=== PATIENT | female | born 1990 | race Hispanic/Latino ===

== ENCOUNTER 2025-06-14 18:02 | Emergency (ER) | payer SELFPAY ==
[2025-06-14 18:08] VITALS: BP 138/84
[2025-06-14] MEDS: MOTRIN 600 MG PO (19:12)
[2025-06-14] MEDS: PERCOCET 5/325 1 TABLET PO (19:12)
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
== END 2025-06-14 19:36 | disposition home or self-care (01) ==
LOC: EMR 18:02
PROVIDERS: EMERGENCY PHYSICIAN Emergency Medicine
DX: S52.501A Unspecified fracture of the lower end of right radius, initial encounter for closed fracture (principal); S52.611A Displaced fracture of right ulna styloid process, initial encounter for closed fracture; S69.92XA Unspecified injury of left wrist, hand and finger(s), initial encounter; V43.52XA Car driver injured in collision with other type car in traffic accident, initial encounter; W22.11XA Striking against or struck by driver side automobile airbag, initial encounter; W22.12XA Striking against or struck by front passenger side automobile airbag, initial encounter; Y92.410 Unspecified street and highway as the place of occurrence of the external cause
CPT/HCPCS: 99283; 29125; 73110

== ENCOUNTER 2025-08-04 21:37 | Observation (INO) | payer OTHER, SELFPAY ==
[2025-08-04 16:52] VITALS: BP 132/77
--- NOTE | 2025-08-04 19:23 | ED.GENMED ---
History of Present Illness
<Gilda Jones PA-C - Last Filed: 08/05/25 00:38>
General
Chief Complaint: Skin Problem
Source: patient
Exam Limitations: none
Time Seen by Provider: 08/04/25 18:49
Nursing documentation reviewed up to this point in time: agreed with
History of Present Illness
History of Present Illness:
Patient is a 35-year-old female who presents to the emergency department for evaluation of an abscess of the right axilla. She states that she initially noticed a 'pimple' in her right axilla few days ago which has rapidly progressed. She was seen
in urgent care yesterday and started on a course of Bactrim and instructed to return today for drainage. However, she was seen by her primary care today and referred to the emergency department for management.
Patient states redness has rapidly expanded over the past 24 hours. She describes significant pain in her right axilla and right arm. She denies any fever, chills, or vomiting.
Just prior to arriving to the ED she reports spontaneous from abscess. She has no history of frequent abscesses.
Patient is not diabetic. No drug allergies.
Past History
<Gilda Jones PA-C - Last Filed: 08/05/25 00:38>
Past History
ED Past Medical History: Psychiatric
ED Past Surgical History: Appendectomy and
Patient has exhibited threatening behavior?: No
Social History
Tobacco: Non-smoker
Alcohol: None
Drug: None
Personal:
Living: with family
Employment: Employed (Furniture store)
Review of Systems
<GENIE Silva Last Filed: 08/05/25 00:38>
Review of Systems
Allergies reviewed?: Yes
All Other Systems: ROS reviewed and negative except as documented in HPI and ROS
Phy Exam
<GENIE Silva Last Filed: 08/05/25 00:38>
Physical Exam
Physical Exam:
Vitals: Patient's vital signs are stable. Afebrile
General: Patient is uncomfortable appearing due to
Skin: Tender, fluctuant mass in right axilla with significant surrounding erythema extending distally toward elbow; spontaneous drainage of blood-tinged purulent fluid from abscess.
Head: Normocephalic, atraumatic
Eyes: Sclera nonicteric.
Throat: Protecting airway
Neck: Normal ROM, no cervical spine tenderness, no meningismus
Cardiac: Regular rate and rhythm, no murmurs.
Pulm: Normal respiratory effort, no wheezes, rales, rhonchi heard on exam
.
Abdomen: No abdominal tenderness.
Extremities: Abscess of right axilla as above. Distal pulses intact
Neuro: AAOx3. CN II-XII intact. No focal neurologic deficits.
Psychiatric: Normal affect.
Course
<Gilda Jones PA-C - Last Filed: 08/05/25 00:38>
Orders/Labs/Results
Orders:
Orders
08/04/25 19:17
Morphine Sulfate 4 mg IV NOW STA
08/04/25 19:21
Clindamycin 600 mg/50 ml [Cleocin] 600 mg in 50 ml IV NOW
Test Result ONCE
08/04/25 19:22
Ketorolac [Toradol] 15 mg IV NOW STA
08/04/25 19:39
Complete Blood Count/With Diff Urgent
Comprehensive Metabolic Panel Urgent
HCG, Serum Qualitative Screen Urgent
Lactate Level [Lactic Acid] Q4H
Blood Culture Urgent
KAILEE Source: Blood/Venous
Specimen Description:
08/04/25 19:41
Wound Culture [Wound/Abscess/Other Culture] Urgent
KAILEE Source: Abscess
Specimen Description:
Date Specimen was Collected: 08/04/25
Time Specimen was Collected: 19:40
08/04/25 19:52
Clindamycin 600 mg/50 ml [Cleocin] 600 mg in 50 ml IV NOW
08/04/25 20:59
Admit/Transfer Patient As Directed
Co-Sign Provider:
Level of Care: Observation services
Assign to:: Medical/Surgical
Physician / Group: Otto Navarro
Diagnosis: right axilla abscess with surrounding cellulitis
PRN Pain Medication Management As Directed
May give lesser potent ordered pain med per pt: Yes
preference::
Protocol:: Medication orders for pain may be administered in a
manner that supports deferring to patient preference
when the pt is:
- Requesting an ordered lesser potent pain medication.
Least to most potent pain medications are defined
as: acetaminophen < NSAID < tramadol < opioids
(morphine, oxycodone, hydromorphone).
- Requesting a lesser dose of the same medication IF
ORDERED.
- Requesting a less intrusive route of administration
if both routes are prescribed by the provider (PO <
IV).
08/04/25 21:00
Code Status As Directed
Resuscitation Status: Full Code
08/04/25 22:09
Acetaminophen [Tylenol] 650 mg PO Q4HPRN PRN
Lorazepam [Ativan] 0.5 mg PO DAILYPRN PRN anxiety
08/04/25 22:09
Activity As Directed
Activity Level: Ambulate
Vital Signs As Directed
Frequency: Per unit guidelines
Weight As Directed
Frequency: Once
Comment: on admission
DX Deep Vein Thrombosis Video Routine
08/05/25 02:00
Ketorolac [Toradol] 10 mg IV Q6HPRN PRN
08/05/25 04:00
Clindamycin 600 mg/50 ml [Cleocin] 600 mg in 50 ml IV Q8H
08/05/25 Breakfast
Regular
At Your Request: Full Participation
08/05/25 08:00
Bupropion(24Hr)Extended Releas [WELLBUTRIN XL (24 hour extended release)] 300 mg PO DAILY
Fluoxetine HCl [Prozac] 40 mg PO DAILY
08/05/25 18:00
Enoxaparin Sodium [Lovenox] 40 mg SC QPM
Abnormal Lab Results
08/04/25
19:39
MCHC 32.7 L g/dL
(33.0-37.0)
Abs Immat Gran (auto) 0.1 H 10^3/uL
(0-0.05)
Absolute Monos (auto) 0.7 H 10^3/uL
(0.1-0.6)
Immature Gran % 0.8 H %
(0-0.5)
08/04/25 19:39
08/04/25 19:39
Vital Signs
Initial and Last Documented VS:
Initial Vital Signs
Temp Pulse Resp BP Pulse Ox
97.6 F 92 18 132/77 97
08/04/25 16:52 08/04/25 16:52 08/04/25 16:52 08/04/25 16:52 08/04/25 16:52
Last Documented Vital Signs
Temp Pulse Resp BP Pulse Ox
97.7 F 71 18 114/74 99
08/04/25 22:10 08/04/25 22:10 08/04/25 22:10 08/04/25 22:10 08/04/25 22:10
Chikislt;Niranjan Foley, DO - Last Filed: 08/04/25 19:42>
Orders/Labs/Results
Orders:
Orders
08/04/25 19:17
Morphine Sulfate 4 mg IV NOW STA
08/04/25 19:21
Clindamycin 600 mg/50 ml [Cleocin] 600 mg in 50 ml IV NOW
Test Result ONCE
08/04/25 19:22
Ketorolac [Toradol] 15 mg IV NOW STA
08/04/25 19:39
Complete Blood Count/With Diff Urgent
Comprehensive Metabolic Panel Urgent
HCG, Serum Qualitative Screen Urgent
Lactate Level [Lactic Acid] Q4H
Blood Culture Urgent
KAILEE Source: Blood/Venous
Specimen Description:
08/04/25 19:41
Wound Culture [Wound/Abscess/Other Culture] Urgent
KAILEE Source: Abscess
Specimen Description:
Date Specimen was Collected: 08/04/25
Time Specimen was Collected: 19:40
08/04/25 19:52
Clindamycin 600 mg/50 ml [Cleocin] 600 mg in 50 ml IV NOW
08/04/25 20:59
Admit/Transfer Patient As Directed
Co-Sign Provider:
Level of Care: Observation services
Assign to:: Medical/Surgical
Physician / Group: Otto Navarro
Diagnosis: right axilla abscess with surrounding cellulitis
PRN Pain Medication Management As Directed
May give lesser potent ordered pain med per pt: Yes
preference::
Protocol:: Medication orders for pain may be administered in a
manner that supports deferring to patient preference
when the pt is:
- Requesting an ordered lesser potent pain medication.
Least to most potent pain medications are defined
as: acetaminophen < NSAID < tramadol < opioids
(morphine, oxycodone, hydromorphone).
- Requesting a lesser dose of the same medication IF
ORDERED.
- Requesting a less intrusive route of administration
if both routes are prescribed by the provider (PO <
IV).
08/04/25 21:00
Code Status As Directed
Resuscitation Status: Full Code
08/04/25 22:09
Acetaminophen [Tylenol] 650 mg PO Q4HPRN PRN
Lorazepam [Ativan] 0.5 mg PO DAILYPRN PRN anxiety
08/04/25 22:09
Activity As Directed
Activity Level: Ambulate
Vital Signs As Directed
Frequency: Per unit guidelines
Weight As Directed
Frequency: Once
Comment: on admission
DX Deep Vein Thrombosis Video Routine
08/05/25 02:00
Ketorolac [Toradol] 10 mg IV Q6HPRN PRN
08/05/25 04:00
Clindamycin 600 mg/50 ml [Cleocin] 600 mg in 50 ml IV Q8H
08/05/25 Breakfast
Regular
At Your Request: Full Participation
08/05/25 08:00
Bupropion(24Hr)Extended Releas [WELLBUTRIN XL (24 hour extended release)] 300 mg PO DAILY
Fluoxetine HCl [Prozac] 40 mg PO DAILY
08/05/25 18:00
Enoxaparin Sodium [Lovenox] 40 mg SC QPM
Abnormal Lab Results
08/04/25
19:39
MCHC 32.7 L g/dL
(33.0-37.0)
Abs Immat Gran (auto) 0.1 H 10^3/uL
(0-0.05)
Absolute Monos (auto) 0.7 H 10^3/uL
(0.1-0.6)
Immature Gran % 0.8 H %
(0-0.5)
08/04/25 19:39
08/04/25 19:39
Vital Signs
Initial and Last Documented VS:
Initial Vital Signs
Temp Pulse Resp BP Pulse Ox
97.6 F 92 18 132/77 97
08/04/25 16:52 08/04/25 16:52 08/04/25 16:52 08/04/25 16:52 08/04/25 16:52
Last Documented Vital Signs
Temp Pulse Resp BP Pulse Ox
97.7 F 71 18 114/74 99
08/04/25 22:10 08/04/25 22:10 08/04/25 22:10 08/04/25 22:10 08/04/25 22:10
Procedures
<Gilda Jones PA-C - Last Filed: 08/05/25 00:38>
Incision/Drainage/Joint Aspiration
Right axilla:
Anethesia: 1% Lidocaine with Epi
Preparation: cleaned with alcohol wipe
Type of procedure: incise and drain
Nature of site: abscess
Description of abscess: greater than 3cm
Loculations broken up: Yes
How much fluid was obtained?: large amount
Fluid description: purulent, blood tinged and bloody
Treatment: left open for drainage
<Gilda Jones PA-C - Last Filed: 08/05/25 00:38>
MDM/Problems Addressed
Differential Diagnosis Includes:
Not limited to: Cyst, abscess, cellulitis, etc.
MDM/Problems Addressed:
35-year-old female with abscess of right axilla with surrounding cellulitis. Initially noticed three days ago and was started on Bactrim yesterday. Rapid expansion of surrounding erythema since starting Bactrim.
No fever, chills, nausea or vomiting. No history of frequent absences.
Vitals stable, afebrile. On exam, patient appears uncomfortable due to pain. There is a tender, fluctuant mass in right axilla, which is draining blood -tinged, purulent fluid. There is significant surrounding cellulitic changes of skin extending
toward elbow.
Patient requires I&D of abscess despite some spontaneous drainage. Verbal consent obtained by patient. Area cleansed thoroughly with alcohol swab and betaine. Local anesthesia with 1% lido w/ epi. Incision using 11 blade with significant
bloody/purulent drainage expressed. Cultures obtained.
Given significant surrounding cellulitis despite oral antibiotics, will admit patient for IV antibiotics. Will check basic labs. IV clindamycin given in ED. Will treat pain.
Patient accepted to hospitalist service in stable condition.
Chronic conditions affecting care:
N/A
Acute Exacerbation and/or Progression of Chronic Illness:
N/A
<Gilda Jones PA-C - Last Filed: 08/05/25 00:38>
*Pulse Oximetry
SaO2: 97
Patient hypoxic: no
*EKG
Interpreted by ED Provider?: NA
*Senior Software Architect Interpretation
Rate: Senior Software Architect- N/A
*Critical Care Note
Total Time (30-74mins, 75-104mins- exclusive of procedures): Not Applicable
<Gilda Jones PA-C - Last Filed: 08/05/25 00:38>
Patient Management
Discussion with other providers: Hospitalist
ED Attending Note
<Gilda Jones PA-C - Last Filed: 08/05/25 00:38>
-
Portions of this chart may have been created with voice recognition software.� Occasional wrong word or��sound alike� substitutions may have occurred due to the inherent limitations of voice recognition software.
<Niranjan Foley DO - Last Filed: 08/04/25 19:42>
ED Attending Note
Patient seen and examined by attending physician: Yes
I performed the substantive portion of visit, reviewed & personally made and approve the management plan that is documented in note by myself or HARDIK.: Yes
ED Attending Note:
I have seen and evaluated the patient with a [id number] encounter. I have spoken to the advance practicer provider and involved in the medical history, the physical exam, medical decision making.
Evaluation and management service: agree unless noted differently below.
Results interpretation: agree unless noted differently below.
Focused HPI: 35-year-old female presenting with large abscess to her right axilla. Patient has already been on Bactrim.
Physical exam: Large abscess to right axilla with surrounding cellulitic changes
Medical Decision Making: Patient requiring I&D. Given the significant amount of cellulitic changes despite being on antibiotics, will admit for IV antibiotics
Discharge Plan
Departure
Patient Disposition: Admit
Date of Disposition: 08/04/25
Time of Disposition: 19:33
Presentation/result/management discussed w/ accepting MD/DO: Hospitalist
Discharge Problem:
Abscess of right axilla, Cellulitis
Interventions
Interventions:
*Risk Screen - Suicide Last Done: 08/04/25 19:31
*General Assessment Last Done: 08/04/25 21:42
*Neglect/Abuse Screening Last Done: 08/04/25 19:31
*ED- Fall Risk Assessment Last Done: 08/04/25 21:44
*ED COVID-19 Vaccine History Last Done: 08/04/25 21:44
*ED Influenza Vaccine History Last Done: 08/04/25 21:44
*Nursing Disposition Last Done: 08/04/25 21:42
ED-Skin Assessment Last Done: 08/04/25 19:31
Discharge Date and Time
Discharge Date/Time: 08/04/25 22:02
[2025-08-04 19:31] VITALS: BMI 30.8
[2025-08-04 19:52] LABS: Hematocrit 38.8 % (37.0-47.0); Hemoglobin 12.7 g/dL (12.0-16.0); Mean Corp Hgb Conc. 32.7 g/dL (33.0-37.0); Mean Corpuscular Volume 84.5 fL (81.0-99.0); Nucleated Red Blood Cells % 0 %; Platelet Count 255 10^3/uL (130-400); Red Cell Dist. Width 12.7 % (11.5-14.5)
[2025-08-04] MEDS: MORPHINE SULFATE 4 MG IV (19:53)
[2025-08-04] MEDS: TORADOL 15 MG IV (19:54)
[2025-08-04 20:07] LABS: HCG, Serum Qualitative Screen Negative
[2025-08-04] MEDS: CLEOCIN 50 IV (20:09)
[2025-08-04 20:12] LABS: ALT (SGPT) 19 U/L (0-35); AST (SGOT) 19 U/L (14-36); Albumin 4.4 g/dl (3.5-5.0); Alkaline Phosphatase 78 U/L (38-126); Blood Urea Nitrogen 15 mg/dl (7-17); Calcium 9.7 mg/dl (8.4-10.2); Carbon Dioxide 28 mmol/L (22-30); Chloride 103 mmol/L (98-107); Estimated Creatinine Clearance 117 ml/min; Glucose 95 mg/dl (70-99); Potassium 3.7 mmol/L (3.5-5.1); Sodium 136 mmol/L (135-145); Total Protein 7.6 g/dl (6.3-8.2); eGFR > 60.00
--- NOTE | 2025-08-04 20:29 | HPS.HSE ---
Family Physician
-
Family Physician: Jie Mclaughlin
Chief Complaint
-
abscess in right axilla
History of Present Illness
Patient is a 35-year-old female with past medical history significant for depression/anxiety who presented to [facility] ED for evaluation of abscess in right axilla. Patient reports she noticed a pimple like area on Saturday afternoon that progressed in
size. She was seen in Urgent Care yesterday where she was prescribed Bactrim. She reports taking 2 doses and seeing primary care provider today who recommended she be seen in the ED. On way from primary care to ED patient reports that the abscess
spontaneously started draining on its own. She denies any fever, chills, cough, shortness of breath, chest pain, palpitations, nausea, vomiting or diarrhea.
Medical History
Past Medical History
Past Medical History: Reports Other
Additional Past Medical History:
depression/anxiety
Past Surgical History: Reports Other
Additional Past Surgical History:
Appendectomy
tonsillectomy and adenoidectomy
section
right wrist repair
right middle finger tendon repair
Social History
Tobacco: Non-smoker
Alcohol: None
Drug: None
Living: With Family
Employment: Employed
Family History
Family History: Not pertinent
Allergies / Home Medications
Allergies reflects when Allergies were last updated in [facility].
Home Medications with original date entered in [facility]
Allergy/Medication List:
Allergies
Allergy/AdvReac Type Severity Reaction Status Date / Time
No Known Allergies Allergy Verified 06/14/25 18:08
Home Medications
bupropion HCl 300 mg 24 hr tablet, extended release (Wellbutrin XL) 300 mg PO DAILY 08/04/25
fluoxetine 40 mg capsule 40 mg PO DAILY 08/04/25
ibuprofen 125 mg-acetaminophen 250 mg tablet (Advil Dual Action) 3 tab PO DAILYPRN PRN mild pain 08/04/25
lorazepam 0.5 mg tablet 0.5 mg PO DAILYPRN PRN anxiety 08/04/25
Review of Systems
-
History Source: Patient
Constitutional: Denies Fever or Chills
EENT: Denies Sore Throat
Respiratory: Denies Cough, Hemoptysis or Trouble Breathing
Cardiac: Denies Chest Pain, Diaphoresis, Palpitations or Syncope
Abdomen/GI: Denies Abdominal Pain, Nausea, Vomiting or Diarrhea
: Denies Dysuria, Frequency or Urgency
Musculoskeletal: Denies Joint Pain
Skin: Reports Other (pain to right axilla with abscess present )
Neurological: Denies Dizzy, Headache, Weakness or Numbness
Physical Exam
Vital Signs
Vital Signs
Temp Pulse Resp BP Pulse Ox
97.6 F 92 18 132/77 97
08/04/25 16:52 08/04/25 16:52 08/04/25 16:52 08/04/25 16:52 08/04/25 19:33
Physical Exam
General: Well Developed, Well Nourished, No Apparent Distress, Comfortable and Conversant
HEENT: NormoCephalic, Moist mucous membranes, PERRLA, Nose Appears Normal and Ears Appear Normal
Respiratory: Clear and Non Labored Respirations
Cardiac: S1/S2 and Regular Rhythm; No Murmur, Rub, Gallop or Peripheral Edema
GI: Soft, Non Tender, Non Distended and Normal Bowel Sounds
Musculoskeletal: No Clubbing, No Cyanosis and No Edema
Skin: Other (right axilla abscess with cellulitis expanding towards elbow )
Neuro: Awake and AO x 3
Psych: Calm and Intact Judgment/Insight
Laboratory Results
-
08/04/25 19:39
08/04/25 19:39
Laboratory Results
Lactic Acid Cancelled 08/04/25 23:30
Total Bilirubin 0.3 mg/dl (0.2-1.3) 08/04/25 19:39
AST 19 U/L (14-36) 08/04/25 19:39
ALT 19 U/L (0-35) 08/04/25 19:39
Alkaline Phosphatase 78 U/L (38-126) 08/04/25 19:39
Data Reviewed
-
Lab Data: Labs Reviewed by me
Impression/Plan
-
IMPRESSION/PLAN:
#right axilla abscess with surrounding cellulitis
area started as pimple Saturday that progressed, seen in Urgent Care yesterday and prescribed Bactrim, 2 doses taken
spontaneously started draining on way to ED for evaluation
wound culture: pending
- Admit to med/surg
- IV Clindamycin
- pain regimen
#depression/anxiety
- continue bupropion, fluoxetine and lorazepam
Code status: full code
DVT prophylaxis: Lovenox sq
--- NOTE | 2025-08-04 20:29 | W.PN.UPDATE ---
Update Note
Progress Note Update
Patient seen in conjunction with [employer]. I agree with the findings on Scope. And concur with assessment plan unless stated otherwise.
Briefly, patient is a 35-year-old female with past medical history significant for depression/anxiety who presents to the emergency department for evaluation of abscess of the right axilla. She developed symptoms a few days ago with rapid
progression. She was seen in urgent care yesterday and started on Bactrim and told to return for drainage. She was then sent to emergency department today by PMD due to progression of symptoms.
He reports significant pain at right axilla. He has not been any fevers or chills. She has had no nausea or vomiting. She does not have diabetes.
I&D performed in the emergency department with large amount of blood and purulent drainage.
In the ED she was afebrile with a temp of 97.6, blood pressure was 132/77 with a pulse rate of 92 and she was satting 98% on room air. Her CBC was unremarkable. Electrolytes BUN/creatinine were all in normal range.
Patient is not at elevated risk for MRSA. She does not have diabetes. She has no recent antibiotic use. This is typical for purulent cellulitis from a folliculitis. She is well-appearing and hemodynamically stable.
- Will admit to MedSurg observation
- Will continue with IV antibiotics for now, clindamycin started in the ED will continue for now although suspect she will do well on cefazolin
- MRSA swab
- Pain control
DVT prophylaxis�SCDs
CODE STATUS�full code
[2025-08-04 22:10] VITALS: BP 114/74; BMI 30.6
[2025-08-05] MEDS: CLEOCIN 50 IV ×3 (03:52→20:40)
--- NOTE | 2025-08-05 05:54 | PTCARENOTE ---
Patient received from ED via stretcher. Patient AAOx3, drowsy from pain medication. POC reviewed with patient including antibiotic schedule. Pain medication given as ordered. Will continue to monitor.
[2025-08-05 07:12] VITALS: BP 130/75
--- NOTE | 2025-08-05 07:34 | W.PN.HOSP.TC ---
Today's Communication/Plan
-
Follow-up on culture results
Nonvascular upper extremity ultrasound
Pain control
Assessment / Plan
Assessment / Plan
#Right axilla abscess with surrounding cellulitis
- S/p I&D in the ED with large amount of blood and purulent drainage on 08/04/2025
- MRSA screen, blood culture, wound culture pending
- Continue with IV clindamycin for now; we can narrow it down after culture results
- pain control with Tylenol and Toradol
- Since diarrhea is still fluctuant after the I&D we will get an ultrasound for better evaluation
#Depression/anxiety
- continue bupropion, fluoxetine and lorazepam
DVT ppx: lovenox
code: Full
Anticipated Discharge: Within 24 hours
Subjective/Interval History
-
Date of Service: August 05, 2025
AFVSS. Continues to have mild discomfort in the right axilla
Objective Data
-
Labs:
Laboratory Results
08/04/25
19:39
WBC 7.9
Hgb 12.7
Hct 38.8
Plt Count 255
Sodium 136
Potassium 3.7
Chloride 103
Carbon Dioxide 28
BUN 15
Creatinine 0.7
Glucose 95
Calcium 9.7
Total Bilirubin 0.3
AST 19
ALT 19
Alkaline Phosphatase 78
Vital Signs:
Vital Signs
Temp Pulse Resp BP Pulse Ox
97.5 F 77 17 130/75 97
08/05/25 07:12 08/05/25 07:12 08/05/25 07:12 08/05/25 07:12 08/05/25 07:12
Review of Systems
-
History Source: Patient
Skin: Reports Other (Right axilla abscess, pain, redness)
Physical Exam
-
General: Well Developed and No Apparent Distress
Respiratory: Clear to Auscultation and Non Labored Respirations
Cardiac: Regular Rhythm and S1/S2
GI: Soft and Nontender
Skin: Other (Right axilla: Tender, fluctuant mass in the right axilla with significant surrounding erythema extending distally towards the elbow, spontaneous blood-tinged purulent drainage)
Neuro: Awake, Alert and Oriented
Psych: Calm
Data Reviewed
-
Labs: Labs Reviewed by me, Discussed with Physician and Discussed with Patient
[2025-08-05] MEDS: PROZAC 40 MG PO (09:03)
[2025-08-05] MEDS: WELLBUTRIN XL (24 hour extended release) 300 MG PO (09:04)
--- NOTE | 2025-08-05 12:56 | CM ---
Patient seen at bedside
IA completed
Lives with son in 2 story home, [address], fllight stairs to bed/bath
PLOF: Independent, works, drives
Denies DME
Denies insecurities
PCP: Jie Mclaughlin
Pharmacy: [facility]
PLAN: Home, no needs anticipated, CM to continue to follow
[2025-08-05 15:08] VITALS: BP 125/75
[2025-08-05] MEDS: LOVENOX 40 MG SC (17:10)
[2025-08-05] MEDS: TYLENOL 650 MG PO (17:10)
[2025-08-05 22:50] VITALS: BP 127/90
[2025-08-06] MEDS: CLEOCIN 50 IV ×3 (04:58→20:31)
[2025-08-06] MEDS: TYLENOL 650 MG PO (05:47)
--- NOTE | 2025-08-06 07:33 | W.PN.HOSP.TC ---
Today's Communication/Plan
-
Continue IV clindamycin
General Surgery consult for possible repeat I&D
Follow up on cultures
Anticipate discharge tomorrow
Assessment / Plan
Assessment / Plan
#Right axilla abscess with purulent cellulitis
- S/p I&D in the ED with large amount of blood and purulent drainage on 08/04/2025
- MRSA screen, blood culture, wound culture pending
- Continue with IV clindamycin for now; we can narrow it down after culture results
- pain control with Tylenol and Toradol
- Since there is still fluctuant after the initial I&D and ultrasound showed complex fluid collection; consult surgery for consideration of repeat I&D
#Depression/anxiety
- continue bupropion, fluoxetine and lorazepam
Diet regular
DVT ppx: lovenox
code: Full
Anticipated Discharge: Within 24 hours
Subjective/Interval History
-
Date of Service: August 06, 2025
AFVSS. Continues to have mild discomfort in the right axilla
Objective Data
-
Labs:
Laboratory Results
08/06/25
07:15
WBC Pending
Hgb Pending
Hct Pending
Plt Count Pending
Sodium Pending
Potassium Pending
Chloride Pending
Carbon Dioxide Pending
BUN Pending
Creatinine Pending
Glucose Pending
Calcium Pending
Vital Signs:
Vital Signs
Temp Pulse Resp BP Pulse Ox
98.5 F 88 16 127/90 98
08/05/25 22:50 08/05/25 22:50 08/05/25 22:50 08/05/25 22:50 08/05/25 22:50
I&O
08/05/25 08/06/25 08/07/25
06:59 06:59 06:59
Intake Total 1420 / 1420
Balance 1420 / 1420
Review of Systems
-
History Source: Patient
Skin: Reports Other (Right axilla abscess, pain, redness)
Physical Exam
-
General: Well Developed and No Apparent Distress
Respiratory: Clear to Auscultation and Non Labored Respirations
Cardiac: Regular Rhythm and S1/S2
GI: Soft and Nontender
Skin: Other (Right axilla: Tender, fluctuant mass in the right axilla with significant surrounding erythema extending distally towards the elbow, spontaneous blood-tinged purulent drainage)
Neuro: Awake, Alert and Oriented
Psych: Calm
Data Reviewed
-
Ultrasound: Report Reviewed by me, Discussed with Physician and Discussed with Patient
Labs: Labs Reviewed by me, Discussed with Physician and Discussed with Patient
[2025-08-06] MEDS: WELLBUTRIN XL (24 hour extended release) 300 MG PO (07:44)
[2025-08-06] MEDS: PROZAC 40 MG PO (07:44)
[2025-08-06 07:46] VITALS: BP 130/85
[2025-08-06 08:16] LABS: Hematocrit 38.8 % (37.0-47.0); Hemoglobin 12.3 g/dL (12.0-16.0); Mean Corp Hgb Conc. 31.7 g/dL (33.0-37.0); Mean Corpuscular Volume 88.0 fL (81.0-99.0); Platelet Count 249 10^3/uL (130-400); Red Cell Dist. Width 12.8 % (11.5-14.5)
[2025-08-06 08:18] LABS: Blood Urea Nitrogen 17 mg/dl (7-17); Calcium 9.2 mg/dl (8.4-10.2); Carbon Dioxide 26 mmol/L (22-30); Chloride 106 mmol/L (98-107); Estimated Creatinine Clearance > 125 ml/min; Glucose 101 mg/dl (70-99); Potassium 4.8 mmol/L (3.5-5.1); Sodium 136 mmol/L (135-145); eGFR > 60.00
--- NOTE | 2025-08-06 09:15 | CON.GS ---
Addendum entered and electronically signed by Prasanna Swain MD 08/06/25 19:29:
Patient seen and examined independently of nurse practitioner. Agree with documented history and physical (with my current examination evaluation.
Reviewed with patient examination findings in which there is persistent induration in the right axilla with some surrounding erythema although that is improving. It is about 2 to 3 cm in diameter. We discussed the possibility of undrained abscess
or infection and indications for consideration of I&D at bedside. Patient advises that she is comfortable proceeding with bedside incision and drainage.
See procedure note for details.
Original Note:
Consultation
-
Date/Time Consultation Performed: 08/06/25929
Medical History
-
Chief Complaint: erythema to right arm
History of Present Illness:
Ms Pena is a 35 yo female with a h/o appi, and recent orthopedic right wrist surgery with hardware placed s/p [facility] on 06/14/2025 ([facility]) who presents with cellulitis and abscess to the right axillary region. She notes that initially she had
what started out as a pimple like area about 5 days ago which increased in size prompting her to present to urgent care 2 days later. She was started on Bactrim DS PO but after 2 days of antibiotics, she noted no improvement and presented through
the ED for evaluation. I&D was preformed in the ED and she was admitted for IV antibiotics. There is surrounding erythema in the axilla and down towards the elbow. A tender palpable area of fluctuance is present in the axilla about 2-3 cm in width.
Minimal old SSF noted on gauze pad. She notes the area has decreased in size since I&D was preformed. She denies fevers or chills.
Past Medical History
Past Medical History: Psychiatric (MANI, MDD)
Past Surgical History: Appendectomy, , Orthopedic (right wrist surgery with hardware 06/2025, right 3rd finger tendon repair) and Tonsilectomy
Social History
Tobacco: Former Smoker
Living: With Family
Employment: Employed
Family History
Family History: Reviewed & Not Pertinent
Allergies / Home Medications
Allergy/AdvReac Type Severity Reaction Status Date / Time
No Known Allergies Allergy Verified 06/14/25 18:08
�Medication �Instructions �Recorded �Confirmed �Type
bupropion HCl 300 mg 24 hr tablet, 300 mg PO DAILY depression/anxiety 08/04/25 08/04/25 History
extended release (Wellbutrin XL)
fluoxetine 40 mg capsule 40 mg PO DAILY depression/anxiety 08/04/25 08/04/25 History
ibuprofen 125 mg-acetaminophen 250 3 tab PO DAILYPRN PRN mild pain 08/04/25 08/04/25 History
mg tablet (Advil Dual Action)
lorazepam 0.5 mg tablet 0.5 mg PO DAILYPRN PRN anxiety 08/04/25 08/04/25 History
Review of Systems
-
History Source: Patient
All other systems: Negative unless noted
A 10 point review of systems was completed, and was negative except as per HPI.
Physical Exam
Vital Signs
Temp Pulse Resp BP Pulse Ox
97.7 F 83 16 130/85 97
08/06/25 07:46 08/06/25 07:46 08/06/25 07:46 08/06/25 07:46 08/06/25 07:46
08/05/25 08/06/25 08/07/25
06:59 06:59 06:59
Actual Weight 80.739 kg
Body Mass Index (BMI) 30.6
Lab Results
08/06/25 07:15
08/06/25 07:15
WBC 4.4 10^3/uL (4.8-10.8) L 08/06/25 07:15
Hgb 12.3 g/dL (12.0-16.0) 08/06/25 07:15
Hct 38.8 % (37.0-47.0) 08/06/25 07:15
Plt Count 249 10^3/uL (130-400) 08/06/25 07:15
Abs Immat Gran (auto) 0.1 10^3/uL (0-0.05) H 08/04/25 19:39
Neutrophils % 55.5 % (42.2-75.2) 08/04/25 19:39
Physical Exam
General: Well Developed and Well Nourished
HEENT: Normocephalic
GI: Soft
Skin: Warm, Dry and Other (Erythema from the right axilla down to the elbow, acorn size area of fluctuation beneath the skin of the axilla. )
Neuro: Awake, Alert and AO x 3
Psych: Calm
Data Reviewed
-
Ultrasound: Image Personally Visualized and interpreted, Report Reviewed by me, Discussed with Physician and Discussed with Patient
Labs: Labs Reviewed by me, Discussed with Physician and Discussed with Patient
Old Records: Reviewed
Assessment / Plan
-
Ms Pena is a 35 yo female with a h/o appi, and recent orthopedic right wrist surgery with hardware placed s/p [facility] on 06/14/2025 ([facility]) who presents with an abscess to the right axillary region developing over the last 5 days with erythema
surrounding the site down to the elbow. No erythema surrounding wrist where a well healed surgical scar is present. PPD #2 I&D in the ED with preliminary cx growing staph aureus. Area of fluctuance still present with US demonstrating a small
collection under the skin which is 2.8 x2.2 cm. Afebrile. VSS. No leukocytosis.
Plan:
Will plan I&D at bedside
Lidocaine with epi ordered for bedside, will place order for dilaudid 1,mg x1 dose preprocedure
ABX as per primary team, await final cx
--- NOTE | 2025-08-06 13:17 | CM ---
patient seen at bedside
I&D planned at bedside today
PLAN: Home, no needs anticipated when stable, CM to follow for discharge planning
[2025-08-06 15:34] VITALS: BP 131/74
[2025-08-06] MEDS: LOVENOX 40 MG SC (17:54)
[2025-08-06] MEDS: DILAUDID 1 MG IV (18:39)
[2025-08-06] MEDS: XYLOCAINE 2% WITH EPINEPHRINE 20 ML INFIL (18:42)
--- NOTE | 2025-08-06 19:13 | W.PN.SURGUPD ---
Surgical Update
Surgical Update
Reviewed with patient indications for further incision and drainage at bedside. Anticipated procedure was reviewed in detail the patient obtaining verbal consent.
The right axillary area was exposed and then prepped with Betadine swabs.
10 mL of 1% lidocaine with epinephrine was infiltrated for local field block.
The previous stab incision was enlarged to approximately 2 cm x 1 cm in a cruciate manner.
Careful blunt dissection revealed indurated subcutaneous fat and firm tissue but no abscess cavity or purulence.
New culture was obtained. Hemostasis observed.
Quarter inch iodoform packing placed
Gauze dressing
Patient tolerated well.
Will check wound tomorrow for packing removal/change.
[2025-08-06 23:00] VITALS: BP 101/58
[2025-08-07] MEDS: TORADOL 10 MG IV ×2 (00:42→07:33)
[2025-08-07] MEDS: CLEOCIN 50 IV (04:58)
[2025-08-07 07:00] VITALS: BP 122/78
[2025-08-07] MEDS: WELLBUTRIN XL (24 hour extended release) 300 MG PO (08:12)
[2025-08-07] MEDS: PROZAC 40 MG PO (08:12)
[2025-08-07 08:38] LABS: Hematocrit 38.1 % (37.0-47.0); Hemoglobin 12.6 g/dL (12.0-16.0); Mean Corp Hgb Conc. 33.1 g/dL (33.0-37.0); Mean Corpuscular Volume 84.3 fL (81.0-99.0); Platelet Count 261 10^3/uL (130-400); Red Cell Dist. Width 12.8 % (11.5-14.5)
--- NOTE | 2025-08-07 09:06 | W.PN.HOSP.TC ---
Today's Communication/Plan
-
Surgery to remove packing today
transition to Keflex to complete 10 days antibiotics total
follow-up with PCP in within 1 week
Assessment / Plan
Assessment / Plan
#Right axillary abscess with purulent cellulitis.
- Wound cultures growing MSSA; status post I&D x 2 by ED and surgery here
- Has not had any systemic inflammatory signs, nontoxic, no sepsis or shock
- Remains on IV clindamycin this morning, will transition to Keflex for MSSA.
- Plan to complete 10 total days of antibiotics and follow-up with PCP
- OTC ibuprofen/Tylenol and local agents for analgesic
#Depression/anxiety
- continue bupropion, fluoxetine and lorazepam
Diet regular
DVT ppx: lovenox
code: Full
Discussed with surgery
Anticipated Discharge: Today
Subjective/Interval History
-
Date of Service: August 07, 2025
Seen and examined at the bedside. No acute events reported overnight. AFVSS this morning
Wound cultures returned positive for MSSA. Patient continues to feel well, denies complaints. Underwent additional I&D with surgery yesterday.
Denies any new complaints today. States she feels well for discharge
Objective Data
-
Labs:
Laboratory Results
08/07/25
08:12
WBC 3.9 L
Hgb 12.6
Hct 38.1
Plt Count 261
Vital Signs:
Vital Signs
Temp Pulse Resp BP Pulse Ox
97.9 F 89 19 122/78 99
08/07/25 07:00 08/07/25 07:00 08/07/25 07:00 08/07/25 07:00 08/07/25 07:00
I&O
08/06/25 08/07/25 08/08/25
06:59 06:59 05:59
Intake Total 1420 / 1420 1300 / 1300
Balance 1419 1300 / 1300
Review of Systems
-
History Source: Patient
All other systems: Reviewed and negative
Physical Exam
-
General: Well Developed, Well Nourished and No Apparent Distress
HEENT: Normocephalic, Atraumatic, Moist Mucous Membranes and Anicteric
Respiratory: Clear to Auscultation and Non Labored Respirations; Negative Accessory Resp Muscle Use
Cardiac: Regular Rhythm and S1/S2; Negative Murmur, Rub or Gallop
GI: Soft, Nontender, Nondistended and Normal Bowel Sounds
Musculoskeletal: No Clubbing, No Cyanosis and No Edema
Skin: Warm, Dry and Other (improved fluctuance at R axilla lesion, no drainage); Negative Rash
Neuro: AO x 3, Nonfocal/Grossly Intact and Central Nerve's Intact
Psych: Calm
Data Reviewed
-
Labs: Labs Reviewed by me and Discussed with Patient
[2025-08-07] MEDS: KEFLEX 500 MG PO (10:33)
--- NOTE | 2025-08-07 12:33 | W.PN.SURGUPD ---
Surgical Update
Surgical Update
Patient seen examined. No complaints. Sore, but pain overall well-controlled. No fevers. Cultures growing MSSA.
Dressing and packing removed. Area less swollen and erythematous. No significant drainage.
-- No need for further procedures.
-- Cover area with dry gauze daily to twice daily and as needed.
-- Follow-up with PCP for wound evaluation in 2 weeks.
-- Discharge on antibiotics per hospitalist.
-- Please call with any questions or concerns.
--- NOTE | 2025-08-07 13:09 | W.DCSUMMARY ---
Discharge Summary
Discharge Data
Date of Admission: 08/04/25
Date of Discharge: 08/07/25
Total time spent discharging patient (in min): 34
-
Pending Results: No
Hospital Course
Discharging physician: Benny Suero DO
Discharging disposition: Home
Primary discharge diagnosis:
Right axillary abscess
Purulent cellulitis
Chronic discharge diagnoses:
Anxiety
Obesity
Hospital course:
35-year-old female hospital with fluctuant lesion in the proximal right upper extremity/axilla. Was started on IV clindamycin empirically and had decision and drainage performed in the ED. Continued to have drainage from the site and follow-up
ultrasound showed remnants of complex fluid collection within the right axilla. Consulted general surgery who performed bedside incision and drainage on 08/06/2025. Wound cultures ultimately came back with MSSA, patient was transition to Keflex
500 mg every 12 hours to complete 10-day course of antibiotics. Incision site packing removed by surgery on day of discharge. Recommend follow-up with PCP within 1 week
Consultants:
General surgery -- Francis Moy MD
Pertinent imaging findings:
Ultrasound right upper extremity (08/05/2025)
FINDINGS/impression: Sonographic imaging in the right axillary region was performed. There is a nonvascular complex collection with irregular margins and low-level internal echoes measuring 2.8 x 0.4 x 2.2 cm with surrounding subcutaneous edema.
Procedures:
Incision and drainage x 2 with wound cultures growing MSSA
Follow-up:
Family doctor within 1 week
Discharge Plan
-
Patient Disposition: Home (Routine Discharge)
Condition: Good
Bathing Restrictions: OK to Shower
Wound Care: Cover open area under your right arm with dry gauze dressing. change twice a day and as needed until well healed. ok to remove dressing for shower. avoid using deodorants or shaving the area until wound healed
Instructions: Skin abscess, Abscess incision and drainage - ED (DC)
Referrals:
Jie Mclaughlin PA [Family Provider, Family Practice]
Additional Discharge Medication Instructions: Continue cephalexin 500 mg twice daily for 8 more days after discharge
For pain you can use OTC Tylenol 1 g every 6 hours as needed
For additional relief can take ibuprofen 400 mg as needed with Tylenol, would limit ibuprofen use as it caused side effects with the kidneys and stomach
Prescriptions:
New
cephalexin 500 mg Capsule
500 mg PO BID 8 Days Qty: 16 0RF
Continued
fluoxetine 40 mg Capsule
40 mg PO DAILY
lorazepam 0.5 mg Tablet
0.5 mg PO DAILYPRN PRN (Reason: anxiety)
bupropion HCl [Wellbutrin XL] 300 mg Tablet Extended Release 24 Hr
300 mg PO DAILY
ibuprofen-acetaminophen [Advil Dual Action] 125-250 mg Tablet
3 tab PO DAILYPRN PRN (Reason: mild pain)
Discharge Orders:
Discharge Patient (As Directed); Ordered 08/07/25
Ordered By: Benny Suero
Discharge Date and Time
Print Language: UPPER SORBIAN
[2025-08-07 13:36] VITALS: BP 112/76
== END 2025-08-07 13:50 | disposition home or self-care (01) ==
LOC: 3 WEST ACU 21:37
PROVIDERS: Physician Assistant; ADMITTING PHYSICIAN Internal Medicine; ATTENDING PHYSICIAN Internal Medicine; CONSULT PHYSICIAN Surgery; EMERGENCY PHYSICIAN Student in an Organized Health Care Education/Training Program; FAMILY PHYSICIAN Physician Assistant Medical
DX: L02.411 Cutaneous abscess of right axilla (principal); M79.601 Pain in right arm; L03.111 Cellulitis of right axilla; F41.1 Generalized anxiety disorder; F32.A Depression, unspecified; R60.0 Localized edema; R19.7 Diarrhea, unspecified; B95.61 Methicillin susceptible Staphylococcus aureus infection as the cause of diseases classified elsewhere; E66.9 Obesity, unspecified; Z68.30 Body mass index [BMI] 30.0-30.9, adult; Z79.899 Other long term (current) drug therapy; Z98.890 Other specified postprocedural states; Z87.891 Personal history of nicotine dependence; Z90.49 Acquired absence of other specified parts of digestive tract; Z90.89 Acquired absence of other organs
CPT/HCPCS: 10060; 76882; 80048; 80053; 83605; 84703; 85025; 85027; 87040; 87070; 87147; 87186; 87205; 96374; 96375; 99285; G0378